=== PATIENT | female | born 1995 | race Caucasian/White ===

== ENCOUNTER 2023-04-30 17:40 | Emergency (ER) | payer OTHER, SELFPAY ==
[2023-04-30 17:48] VITALS: BP 136/84; PULSE 89; RESP 20; TEMP 36.7; O2SAT 100
--- NOTE | 2023-04-30 18:01 | ED.SKABFB ---
HPI - Skin/Abscess/Foreign Bdy General Chief complaint: Skin/Abscess/Foreign Body Stated complaint: COLD SORE Time Seen by Provider: 04/30/23 18:01 Source: patient, RN notes reviewed and old records reviewed Mode of arrival: ambulatory Limitations: no limitations History of Present Illness HPI narrative: 27 year old female accompanied by caregiver from residential with complaints of patient having cold sore on the bottom of her left lower lip for several days.Caregiver states that patient is rubbing her teeth on it and touching it causing area to have more irritation. Caregiver reports he doesn't know when she had previous cold sore. Patient has no fevers, no cough or any signs of respiratory infection. Patient is nonverbal but shakes head yes or no and uses gestures to communicate, is cooperative with exam. MD complaint: other (cold sore) Location: face (left lower lip cold sore) Related Data Home Medications Medication Instructions Recorded Confirmed acetaminophen 325 mg tablet 325 mg PO ONCE PRN Pain 04/30/23 04/30/23 famotidine 20 mg tablet 20 mg PO DAILY 04/30/23 04/30/23 norethindrone 1 mg-ethinyl 1 tablet PO DAILY 04/30/23 04/30/23 estradiol 35 mcg tablet (Nortrel) Allergies Allergy/AdvReac Type Severity Reaction Status Date / Time chocolate flavor Allergy Other Verified 04/30/23 18:01 Review of Systems Review of Systems: CONSTITUTIONAL: Denies fever, chills, or sweats. EYES: Denies visual changes, redness, or discharge. ENT: Denies rhinorrhea, congestion, sore throat, or otalgia.cold sore to left lower lip, red and irritated area CARDIOVASCULAR: Denies chest pain, palpitations, or edema. RESPIRATORY: Denies cough or dyspnea. GASTROINTESTINAL: Denies abdominal pain, nausea, vomiting, or diarrhea. GENITOURINARY: Denies dysuria or hematuria. SKIN: Denies rash or itching. MUSCULOSKELETAL: Denies back pain, joint pain, or myalgia. NEUROLOGIC: Denies headache, numbness, or weakness. PSYCHIATRIC: Denies anxiety or depression. patient is nonverbal, autism All systems reviewed & are unremarkable except as noted in HPI and below PMFSH Past Medical History Medical History (Updated 05/01/23 @ 10:26 by Zaria Jimenez NP) ADHD (attention deficit hyperactivity disorder) Autism Febrile seizure GERD (gastroesophageal reflux disease) UTI (urinary tract infection) Surgical History Surgical History (Updated 04/30/23 @ 18:29 by Zaria Jimenez NP) History of tonsillectomy Social History Social History (Updated 04/30/23 @ 18:30 by Zaria Jimenez NP) Smoking status: Never smoker Alcohol intake: never Substance use type: does not use Living arrangements: residential Gender identity (if verbalized by the patient): Female Comments At time of signature, agree with nursing past medical, surgical, social and family history. There is no relevant family history pertinent to the presenting complaint Exam Narrative: GENERAL: Well-appearing, well-nourished, and in no acute distress.nonverbal communicates with gestures shakes head yes or no HEAD: Normocephalic, atraumatic. EYES: PERRLA and EOMI. ENT: Nares clear, no rhinorrhea or epistaxis. Mucous membranes moist.TM's normal throat pink no swelling tonsils not present, lesion to left lower lip cold sore NECK: Supple. no lymphadenopathy CHEST: Clear to auscultation. No respiratory distress.SAO2 100% on room air HEART: Regular rate and rhythm. No murmur heard. Normal peripheral pulses. ABDOMEN: Soft, nontender, nondistended, normal active bowel sounds. EXTREMITIES: Normal range of motion. No edema. SKIN: Warm, dry, no rash. NEURO: No focal deficits. Alert and oriented x3. non verbal history of autism lives in residential setting Course Course Emergency Course: Patient is aware of diagnosis, understands and agrees to treatment plan.? Anticipatory guidance given.? Patient agrees to follow-up as directed and is aware of reasons to seek care at the eva
== END 2023-04-30 18:31 | disposition home or self-care (01) ==
PROVIDERS: Emergency Provider Registered Nurse; PCP Internal Medicine
DX: B00.1 Herpesviral vesicular dermatitis (principal); F84.0 Autistic disorder; K21.9 Gastro-esophageal reflux disease without esophagitis
CPT/HCPCS: 99213; G0463

== ENCOUNTER 2024-07-03 19:47 | Emergency (ER) | payer OTHER, SELFPAY ==
[2024-07-03 19:53] VITALS: BP 138/94; PULSE 70; RESP 16; TEMP 36.2; O2SAT 100
--- NOTE | 2024-07-03 19:56 | ED.HEATRA ---
HPI - Head Injury General Chief complaint: Head Injury Stated complaint: Head Injury Time Seen by Provider: 07/03/24 19:56 Source: patient Mode of arrival: ambulatory Limitations: no limitations History of Present Illness HPI Narrative: Does jaylen is a 28-year-old female patient presenting to the clinic today from a developmentally disabled facility. Caregiver this with the patient states that she fell when getting out of the bathroom after showering. She fell and hit her forehead. Caregiver denies any loss of consciousness. Patient is nonverbal normally. They are concerned that she may have a concussion. Has a small knot to the right side of her forehead where she fell. Patient is acting appropriate per caregiver. Patient has not had a nausea or vomiting Related Data Home Medications Medication Instructions Recorded Confirmed famotidine 20 mg tablet 20 mg PO DAILY 04/30/23 07/03/24 norethindrone 1 mg-ethinyl 1 tablet PO DAILY 04/30/23 07/03/24 estradiol 35 mcg tablet (Nortrel) Allergies Allergy/AdvReac Type Severity Reaction Status Date / Time chocolate flavor Allergy Other Verified 07/03/24 19:57 Review of Systems Review of Systems: Pertinent positives per HPI. Patient denies any fever, chills, rash, headache, visual changes, dizziness, cough, runny nose, sore throat, shortness of breath, chest pain, palpitations, nausea, vomiting, diarrhea, constipation, abdominal pain, or any urinary issues. [facility] Past Medical History Medical History (Updated 07/03/24 @ 20:03 by Jimmy Escalante APRN) ADHD (attention deficit hyperactivity disorder) Autism Febrile seizure GERD (gastroesophageal reflux disease) UTI (urinary tract infection) Surgical History Surgical History (Updated 04/30/23 @ 18:29 by Zaria Jimenez NP) History of tonsillectomy Social History Social History (Updated 04/30/23 @ 18:30 by Zaria Jimenez NP) Smoking status: Never smoker Alcohol intake: never Substance use type: does not use Living arrangements: snf Gender identity (if verbalized by the patient): Female Comments At the time of my signature, I reviewed and agree with the nursing past medical, surgical, social, and family history. There is no relevant family history pertinent to the patient complaint. Exam Narrative: General: Well-developed, well nourished, in no apparent distress Head: Normocephalic, atraumatic Eyes: Pupils equally round and reactive to light bilaterally, EOM intact, sclera and conjunctive clear, no discharge, lids normal Ears: TMs intact and clear, ear canals clear, no drainage, grossly hearing normal. Nose: Nares patent, no discharge, no inflammation, no sinus tenderness. Mouth: Oropharynx without lesions or masses, good dentition, MMM. Tongue midline, even rise and fall of uvula Neck: Supple, trachea midline, no enlargement of anterior or posterior cervical nodes, no thyroid masses or goiter palpable. Cardio: Regular rate and rhythm, s1 and s2 normal, no murmur appreciated. Resp: Clear to auscultation bilaterally anteriorly and posteriorly, no rhonchi, rales, wheezing or rubs Musculoskeletal: No deformity, non-tender to palpation, grossly normal range of motion, muscle strength strong and equal, peripheral pulse strong, no edema, no cyanosis, normal gait and station Neuro: Alert and oriented x4 with normal speech, no focal deficits, cranial nerves I through XII intact, muscle strength 5 out of 5, sensation intact bilaterally, negative Romberg test Course Course Emergency Course: Portions of this record may have been created with voice recognition software. Level of Care: Express Care Visit Vital Signs Vital signs: Vital Signs Temperature 36.2 C L 07/03/24 19:53 Pulse Rate 70 07/03/24 19:53 Respiratory Rate 16 07/03/24 19:53 Blood Pressure 138/94 H 07/03/24 19:53 Pulse Oximetry 100 07/03/24 19:53 Temperature 36.2 C L 07/03/24 19:
== END 2024-07-03 20:07 | disposition home or self-care (01) ==
PROVIDERS: Emergency Provider Nurse Practitioner Family; PCP Family Medicine
DX: S09.90XA Unspecified injury of head, initial encounter (principal); S00.93XA Contusion of unspecified part of head, initial encounter; W19.XXXA Unspecified fall, initial encounter; F84.0 Autistic disorder; K21.9 Gastro-esophageal reflux disease without esophagitis
CPT/HCPCS: 99213; G0463

== ENCOUNTER 2025-05-26 17:09 | Emergency (ER) | payer OTHER, SELFPAY ==
--- NOTE | ~2025-05-26 | XR_ITS ---
Exam: Abdomen 1V HISTORY: rectal pain COMPARISON: None. TECHNIQUE: Supine images of the abdomen FINDINGS: Bowel gas pattern is nonspecific and non-obstructive. A single loop of minimally dilated colon is identified within the left hemipelvis. Remainder of the bowel loops within the pelvis demonstrate fecal stasis. There is no free air or deep sulci. No pathologic calcifications are seen. IMPRESSION: Fecal stasis within the rectum. A single loop of minimally dilated colon within the left hemipelvis. Reviewed, dictated and finalized at location A.
--- OUTSIDE RECORDS SUMMARY | 2025-05-26 17:11 | XMS_ITS | Clinical Summary ---
Author Organization [facility] Address [address] [address] Care Team Providers Care Fire Observer Name Role Phone Unavailable Primary Care Provider Unavailabl e Source Comments [facility],non-owned Affiliates and Associated Physician Practices is amultiple site organization consisting of ambulatory clinics and hospital sitesin [place], [place], [place] and [place]. This disclosure is being madepursuant to the Care Everywhere program and may not contain all information available regarding this patient. Last updated 18.[facility] Allergies Active Allergy Reactions Criticality Noted Date Comments Chocolate Diarrhea 07/19/2018 [place] Diarrhea 07/19/2018 Medications * Be aware that medications may not be up to date on this document. Alwaysverify current medications with the patient. 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 Oct 2009 EGD--mild esophagitis Colonoscopy--mild Cecitis and non-necratizing granuloma in terminal ileum. Treated with Asacol without improvement in diarrhea but repeat Colonoscopy normal. April 2010 Colonoscopy--normal CBC, CMP unremarkable. Stool cultures negative August 2014 CBC, CMP, Amylase, Lipase, PT/PTT, INR--WNL CRP--1.1 (<0.5) 08/24/14 Abdominal Ultrasound--mild splenomegaly and echogenic focus near left kidney. 09/19/14 SBFT--Normal except left ovarian mass 09/26/14 CT abdomen--Normal intestines. Teratoma left ovary. Staring spell 05/17/2012 Overview (05/19/2012): 16yo female with developmental delay since and staring spells concerning for seizures. Also with screaming episodes during sleep during which she bites her tongue and cheek. Evaluated in neurology clinic by Dr. Solorio. Past EEGs abnormal but without seizure activity. No seizure activity noted in 48hrs of VEEG despite staring spell noted by parents. Will discharge home with out any changes at this time. Global developmental delay 05/17/2012 Abnormal EEG 05/04/2012 Overview (05/04/2012): Generalized brief epileptiform changes in multiple EEG's 1999 - February 2012. Dev. Delay + autistic features. Dental caries 02/12/2012 Diarrhea 05/01/2010 Immunizations Immunization Administration Dates Next Due Chegg primary monoval ent 12+ yr 0.3mL Purple cap 01/08/2021,12/18/2020 Family History Medical History Relation Name Comments Diabetes Maternal Grandfather GERD - Gastroesophageal Reflux Disease Maternal Grandm other IBS Maternal Grandmother Stomach ulcers Maternal Grandmother Cholelithiasis Mother Asthma Sister Anesthesia Reaction Neg Hx Celiac Disease Neg Hx IBD Neg Hx Relation Name Status Comments Maternal Grandfather Maternal Grandmother Mother Sister Social History Tobacco Use Types Packs/Day Years Used Date Smoking Tobacco: Never Passive Smoke Exposure: Yes Smokeless Tobacco: Never Tobacco Cessation:Counseling Given: Not Answered Alcohol Use Standard Drinks/Week Comments No 0 (1 standard drink = 0.6 oz pur e alcohol) Comments No Sex and Gender Information Value Date Recorded Sex Assigned at Not on file Legal Sex Female 5:37 AM POSTING MACHINE OPERATOR Gender Identity Not on file Sexual Orientation Not on file Last Filed Vital Signs Vital Sign Reading Time Taken Comments Blood Pressure 116/78 11/08/2024 10:43 AM POSTING MACHINE OPERATOR Pulse 96 10/26/2014 11:51 AM POSTING MACHINE OPERATOR Temperature 37 C (98.6 F) 10/26/2014 11:51 AM POSTING MACHINE OPERATOR Respiratory Rate 20 10/26/2014 11:51 AM POSTING MACHINE OPERATOR Oxygen Saturation 96% 10/22/2014 3:50 PM POSTING MACHINE OPERATOR Inhaled Oxygen Concentration - - Weight 90.7 kg (200 lb) 11/08/2024 10:43 AM POSTING MACHINE OPERATOR Height 165.1 cm (5' 5) 11/08/2024 10:43 AM POSTING MACHINE OPERATOR Body Mass Index 33.28 11/08/2024 10:43 AM POSTING MACHINE OPERATOR Plan of Treatment Upcoming Encounters Date Type Department Care Team (Late st Contact Info) Description 11/12/2025 2:45 PM POSTING MACHINE OPERATOR Office Visit [facility] - RECORDS ASSISTANT [address] [place] [address] Magy Graham MD [address] [place] [address] Health Maintenance Due Date Last Done Comments HIV SCREENING 2011 HEPATITIS C SCREENING 12/03/2014 DTAP/TDAP/TD VACCINES (1 - Tdap) 2015 HEPATITIS B VACCINE (1 of 3 - 19+ 3-dose series) 2015 COVID-19 VACCINE ( season) 2024 09/02/2022, 01/13/2022, 01/08/2021, Additional history exists DEPRESSION SCREENING 11/22/2024 PAP SMEAR 11/08/2027 11/08/2024, 10/22, 07/19/2018 ZOSTER VACCINE (1 of 2) 2046 INFLUENZA VACCINE Completed 08/26/2024, , 09/02/2022, Additional history exists HIB VACCINE Aged Out No longer eligi ble based on patient's age to complete this topic HPV VACCINE Aged Out No longer eligi ble based on patient's age to complete this topic MENINGOCOCCAL (Group B) VACCINE SHARED DECISION-MAKING Aged Out No longer eligible based on patient's age to complete this topic MENINGOCOCCAL GROUPS A/C/Y/W VACCINE Aged Out No longer eligible based on patient's age to complete this topic PNEUMOCOCCAL VACCINE Aged Out No long er eligible based on patient's age to complete this topic Procedures Procedure Name Priority Date/Time Associated Diagnosis Comments PAP IMAGE-GUIDED RFLX HPV+CT/NG Routine 11/08/2024 10:57 AM POSTING MACHINE OPERATOR Encounter for annual routine gynecological examination Screen for STD (sexually transmitted disease) from Last 3 Months or Most Recently Relevant to Health Maintenance Results * PAP IMAGE-GUIDED RFLX HPV+CT/NG (11/08/2024 10:57 AM POSTING MACHINE OPERATOR) Case Report Gynecologic Cytology Report Case: [id number] Authorizing Provider: Magy Graham MD Collected: 11/08/2024 10:57 AM Ordering Location: [facility] - Received: 11/09/2024 01:49 PM RECORDS ASSISTANT First Screen: Liban Thompson CT(ASCP) Specimen: THINPREP - IMAGE GUIDED, Vagina 11/10/2024 1:29 PM POSTING MACHINE OPERATOR [facility] LMP 11/08/2024 11/10/2024 1:29 PM POSTING MACHINE OPERATOR [facility] Menstrual Status Oral Contraceptives 11/10/2024 1:29 PM POSTING MACHINE OPERATOR [facility] Specimen Adequacy Satisfactory for evaluation. 11/10/2024 1:29 PM POSTING MACHINE OPERATOR [facility] Categorization Negative for intraepithelial lesion or malignancy. 11/10/2024 1:29 PM POSTING MACHINE OPERATOR [facility] Interpretation TOMB MAKER HELPER Negative for intraepithelial lesion or malignancy. 11/10/2024 1:29 PM POSTING MACHINE OPERATOR [facility] at 1329 POSTING MACHINE OPERATOR Pap Footnote The Pap Smear is a screening test. False positive and false negative results occur. Negative results do not preclude abnormalities, thus clinical correlation is required. This specimen was evaluated by the [facility] along with an additional manual rescreening by a cardiac cath lab radiology technologist and/or pathologist. 11/10/2024 1:29 PM POSTING MACHINE OPERATOR [facility] Embedded Images 1:29 PM [facility] Pathology/Cytolo gy ENTIRE VAGINA / Unknown 11/08/2024 10:57 AM POSTING MACHINE OPERATOR 11/09/2024 1:49 PM POSTING MACHINE OPERATOR Magy Graham MD LAB - PATHOLOGY/CYTOLOGY ORDERA BLE Final Result [facility] [address] [place] [address], [facility] [phone] from Last 3 Months or Most Recently Relevant to Health Maintenance Insurance
[2025-05-26 17:44] VITALS: BP 162/98; PULSE 96; RESP 18; TEMP 36.6; O2SAT 100
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
[2025-05-26 21:18] LABS: BEDSIDEPREGUCG Negative (Negative)
[2025-05-26 21:48] LABS: Add Urine Microscopic? YES; Appearance Urine Cloudy (Clear); Glucose Urine UA Negative (Negative); Leukocyte Esterase Ur 2+ LEU/UL (Negative); Need Manual Microscopic Reviewed; Nitrate Urine Negative (Negative); Non Pathogenic Casts 0-2; Specific Grav Ur 1.033 (1.001-1.035)
--- OUTSIDE RECORDS SUMMARY | 2025-05-26 21:55 | XMS_ITS | Clinical Summary ---
Author Organization [facility] Address [address] [place] [address] Care Team Providers Care Fitting Room Supervisor Name Role Phone Unavailable Primary Care Provider Unavailabl e Source Comments [facility],non-owned Affiliates and Associated Physician Practices is amultiple site organization consisting of ambulatory clinics and hospital sitesin [place], [place], [place] and [place]. This disclosure is being madepursuant to the Care Everywhere program and may not contain all information available regarding this patient. Last updated 18.[facility] Allergies Active Allergy Reactions Criticality Noted Date Comments Chocolate Diarrhea 07/19/2018 [place] Diarrhea 07/19/2018 Medications * Be aware that [...] 05/01/2010 Immunizations Immunization Administration Dates Next Due Ancera primary monoval ent 12+ yr 0.3mL Purple [...] on file Legal Sex Female 5:37 AM MAGNETIC PROSPECTOR Gender Identity Not on file Sexual Orientation Not on file Last Filed Vital Signs Vital Sign Reading Time Taken Comments Blood Pressure 116/78 11/08/2024 10:43 AM MAGNETIC PROSPECTOR Pulse 96 10/26/2014 11:51 AM MAGNETIC PROSPECTOR Temperature 37 C (98.6 F) 10/26/2014 11:51 AM MAGNETIC PROSPECTOR Respiratory Rate 20 10/26/2014 11:51 AM MAGNETIC PROSPECTOR Oxygen Saturation 96% 10/22/2014 3:50 PM MAGNETIC PROSPECTOR Inhaled Oxygen Concentration - - Weight 90.7 kg (200 lb) 11/08/2024 10:43 AM MAGNETIC PROSPECTOR Height 165.1 cm (5' 5) 11/08/2024 10:43 AM MAGNETIC PROSPECTOR Body Mass Index 33.28 11/08/2024 10:43 AM MAGNETIC PROSPECTOR Plan of Treatment Upcoming Encounters Date Type Department Care Team (Late st Contact Info) Description 11/12/2025 2:45 PM MAGNETIC PROSPECTOR Office Visit [facility] - ADMINISTRATIVE SERVICES OFFICER [address] [place] [address] Magy Graham MD [address] [place] [address] Health Maintenance Due Date Last [...] IMAGE-GUIDED RFLX HPV+CT/NG Routine 11/08/2024 10:57 AM MAGNETIC PROSPECTOR Encounter for annual routine gynecological examination Screen for STD (sexually transmitted disease) from Last 3 Months or Most Recently Relevant to Health Maintenance Results * PAP IMAGE-GUIDED RFLX HPV+CT/NG (11/08/2024 10:57 AM MAGNETIC PROSPECTOR) Case Report Gynecologic Cytology Report Case: [id number] Authorizing Provider: Magy Graham MD Collected: 11/08/2024 10:57 AM Ordering Location: [facility] - Received: 11/09/2024 01:49 PM ADMINISTRATIVE SERVICES OFFICER First Screen: Liban Thompson CT(ASCP) Specimen: THINPREP - IMAGE GUIDED, Vagina 11/10/2024 1:29 PM MAGNETIC PROSPECTOR [facility] LMP 11/08/2024 11/10/2024 1:29 PM MAGNETIC PROSPECTOR [facility] Menstrual Status Oral Contraceptives 11/10/2024 1:29 PM MAGNETIC PROSPECTOR [facility] Specimen Adequacy Satisfactory for evaluation. 11/10/2024 1:29 PM MAGNETIC PROSPECTOR [facility] Categorization Negative for intraepithelial lesion or malignancy. 11/10/2024 1:29 PM MAGNETIC PROSPECTOR [facility] Interpretation CONTACT CENTER MANAGER Negative for intraepithelial lesion or malignancy. 11/10/2024 1:29 PM MAGNETIC PROSPECTOR [facility] at [address] MAGNETIC PROSPECTOR Pap Footnote The Pap Smear is a screening test. False positive and false negative results occur. Negative results do not preclude abnormalities, thus clinical correlation is required. This specimen was evaluated by the [facility] along with an additional manual rescreening by a tribal council member and/or pathologist. 11/10/2024 1:29 PM MAGNETIC PROSPECTOR [facility] Embedded Images 1:29 PM [facility] Pathology/Cytolo gy ENTIRE VAGINA / Unknown 11/08/2024 10:57 AM MAGNETIC PROSPECTOR 11/09/2024 1:49 PM MAGNETIC PROSPECTOR Magy Graham MD LAB - PATHOLOGY/CYTOLOGY ORDERA BLE Final Result [facility] [address] [place] [address], [facility] [phone] from Last 3 Months or Most Recently Relevant to Health Maintenance Insurance
[2025-05-26 22:30] LABS: Trichomonas Vag PCR NOT DETECTED (NOT DETECTE)
[2025-05-26] MEDS: FLUCONAZOLE 150 MG TABLET PO (22:34)
[2025-05-26] MEDS: CEPHALEXIN 500 MG CAPSULE PO (22:34)
[2025-05-26 22:40] LABS: Hematocrit 38.8 % (37.0-47.0); Hemoglobin 12.7 g/dL (12.0-15.0); Immature Granulocyte Percent A 0.3 % (0-0.5); Lymphocytes Absolute Auto 2.46 K/mm3 (0.9-3.2); Mean Corpuscular HGB Conc 32.7 g/dl (32-36); Mean Corpuscular Hemoglobin 28.3 pg (26-34); Mean Corpuscular Volume 86.6 fl (80-100); Nucleated Red Blood Cells Absolute Auto 0.000 K/mm3 (0.0-0.012); Nucleated Red Blood Cells Perc 0.0 % (0.0-0.2); Platelet Count Result 349 k/mm3 (150-375); Red Blood Count 4.48 M/mm3 (4.2-5.4); White Blood Count 8.6 K/mm3 (4.5-10.0)
[2025-05-26 22:50] LABS: Alanine Aminotransferase 28 U/L (6-35); Albumin Level 3.9 g/dL (3.5-5.1); Alkaline Phosphatase 41 U/L (38-126); Anion Gap 11 mmol/L (4-12); Aspartate Amino Transferase 27 U/L (14-36); Bilirubin,Total 0.2 mg/dL (0.2-1.3); Blood Urea Nitrogen 8 mg/dL (7-17); Calcium 9.0 mg/dL (8.4-10.2); Carbon Dioxide 20 mmol/L (22-30); Chloride 107 mmol/L (98-107); Estimated Glomerular Filt Rate > 60; Glucose 128 mg/dL (65-110); Potassium 3.5 mmol/L (3.4-5.0); Sodium 138 mmol/L (137-145); Total Protein 7.5 g/dL (6.3-8.2)
--- NOTE | 2025-05-27 02:17 | PC.NURSE ---
This RN attempted to contact pt's Aunt again as staff member at bedside reports that her superior was able to make contact with Aunt around 2144 lasts night. Left message for return call.
--- NOTE | 2025-05-27 03:30 | PC.NURSE ---
Pt given ice cream per request.
--- NOTE | 2025-05-27 03:46 | PC.NURSE ---
Assumed care of patient after receiving report from Carrie King RN @[phone]
--- NOTE | 2025-05-27 05:36 | PC.NURSE ---
Spoke with pt's guardian, Malathi Lopez, who states that she has been out of town and with intermittent cell service. States that the assisted contacted her and informed her of the pt's visit here. States that she is 3 hours away, but will be on her way in approx 1 hour to head here and should have cell service once on the way back to speak with the DESK OPERATOR and Care Coordination that I informed her would be calling.
--- NOTE | 2025-05-27 05:57 | PC.NURSE ---
Spoke with Ursula from [facility] who states she will be contacting the guardian for consent.
--- NOTE | 2025-05-27 07:18 | PC.NURSE ---
Patient refusing to allow this RN to obtain vital signs
[2025-05-27 08:24] VITALS: BP 110/74; PULSE 68; RESP 18; TEMP 36.8; O2SAT 100
--- NOTE | 2025-05-27 08:26 | PC.NURSE ---
Guardian called to report she is en route. [employer] made aware.
--- NOTE | 2025-05-27 08:46 | PC.NURSE ---
DARCIE Whitehead, with [employer] arrived.
== END 2025-05-27 10:49 | disposition home or self-care (01) ==
PROVIDERS: Emergency Provider Physician Assistant; PCP Family Medicine
DX: T76.21XA Adult sexual abuse, suspected, initial encounter (principal); N30.01 Acute cystitis with hematuria; N89.8 Other specified noninflammatory disorders of vagina; K21.9 Gastro-esophageal reflux disease without esophagitis; F90.9 Attention-deficit hyperactivity disorder, unspecified type; F84.0 Autistic disorder; Z87.440 Personal history of urinary (tract) infections; Z79.3 Long term (current) use of hormonal contraceptives
CPT/HCPCS: 36415; 74018; 80053; 81001; 81025; 85025; 87086; 87491; 87591; 87661; 99283; A9270